=== PATIENT | male | born 1980 | race American Indian/Alaskan Native ===

== ENCOUNTER 2022-03-22 22:08 | Emergency (ER) | payer OTHER ==
[2022-03-22 23:58] LABS: Basophils # (Auto) 0.1 K/mm3 (0.0-0.1); Basophils % (Auto) 0.8 % (0.0-1.8); Eosinophils # (Auto) 0.2 K/mm3 (0.0-0.4); Eosinophils % (Auto) 2.1 % (0.0-4.3); Hematocrit 38.6 % (35.5-45.6); Lymphocytes # (Auto) 2.5 K/mm3 (1.2-5.4); Lymphocytes % (Auto) 27.2 % (13.4-35.0); Mean Corpuscular HGB Conc 34 % (32-34); Mean Corpuscular Volume 92 fl (84-94); Monocytes # (Auto) 0.8 K/mm3 (0.0-0.8); Monocytes % (Auto) 9.1 % (0.0-7.3); Platelet Count 226 K/mm3 (140-440); Red Blood Count 4.19 M/mm3 (3.65-5.03); Red Cell Distribution Width 15.3 % (13.2-15.2)
[2022-03-23 00:21] LABS: Blood Urea Nitrogen 10 mg/dL (9-20); Calcium 9.2 mg/dL (8.4-10.2); Hemolysis Index 3
[2022-03-23 00:31] LABS: BUN/Creatinine Ratio 17
--- NOTE | 2022-03-23 02:18 | Emergency Department Report ---
ED General Adult HPI - General Chief complaint: Medical Clearance Stated complaint: MEDICAL CLEARANCE Time Seen by Provider: 03/23/22 01:27 Source: patient, EMS Mode of arrival: Stretcher Limitations: No Limitations - History of Present Illness Initial comments: 42-year-old male with a history of hypertension who now presented with elevated blood pressure that was noticed to be 170/100 and presentation. When asked patient reported that he has finished metoprolol 25 mg that he was supposed to be taking. Patient however denied any chest pain or shortness of breath or palpitation. No other modifying or associated factors reported. - Related Data Previous Rx's Medication Instructions Recorded Last Taken Type Metoprolol [Lopressor TAB] 25 mg PO BID 30 Days #60 tablet NS 03/23/22 Unknown Rx Allergies Allergy/AdvReac Type Severity Reaction Status Date / Time No Known Allergies Allergy Unverified 03/22/22 23:27 ED Review of Systems ROS: Stated complaint: MEDICAL CLEARANCE Other details as noted in HPI Comment: All other systems reviewed and negative Gastrointestinal: nausea ED Past Medical Hx - Past Medical History Previous Medical History?: Yes Hx Hypertension: Yes Hx Seizures: Yes Hx Psychiatric Treatment: Yes (Schizophrenia) - Social History Smoking Status: Current Every Day Smoker Substance Use Type: None - Medications Home Medications: Home Medications Medication Instructions Recorded Confirmed Last Taken Type Metoprolol [Lopressor TAB] 25 mg PO BID 30 Days #60 tablet NS 03/23/22 Unknown Rx ED Physical Exam - General Limitations: No Limitations General appearance: alert, in no apparent distress - Head Head exam: Present: normal inspection - Eye Eye exam: Present: normal appearance Pupils: Present: normal accommodation - ENT ENT exam: Present: normal exam, normal orophraynx, mucous membranes moist - Neck Neck exam: Present: normal inspection. Absent: tenderness, full ROM - Respiratory Respiratory exam: Present: normal lung sounds bilaterally, respiratory distress. Absent: accessory muscle use - Cardiovascular Cardiovascular Exam: Present: regular rate, normal rhythm, normal heart sounds - GI/Abdominal GI/Abdominal exam: Present: soft, normal bowel sounds. Absent: distended, tenderness - Extremities Exam Extremities exam: Present: normal inspection. Absent: tenderness - Back Exam Back exam: Present: normal inspection. Absent: tenderness - Psychiatric Psychiatric exam: Present: normal affect, normal mood ED Course Vital Signs 03/22/22 03/22/22 03/22/22 23:27 23:30 23:46 Temperature 98 F Pulse Rate 55 L 58 L 67 Respiratory 18 12 13 Rate Blood Pressure 172/108 172/108 159/103 O2 Sat by Pulse 100 99 99 Oximetry 03/23/22 03/23/22 03/23/22 00:00 00:16 00:30 Temperature Pulse Rate 49 L 51 L 44 L Respiratory 17 17 14 Rate Blood Pressure 171/101 142/82 142/83 O2 Sat by Pulse 99 100 100 Oximetry 03/23/22 03/23/22 03/23/22 00:46 01:00 01:16 Temperature Pulse Rate 73 64 50 L Respiratory 14 17 13 Rate Blood Pressure 127/77 136/75 156/89 O2 Sat by Pulse 98 98 100 Oximetry 03/23/22 03/23/22 03/23/22 01:30 01:46 02:00 Temperature Pulse Rate 60 52 L 49 L Respiratory 11 L 19 12 Rate Blood Pressure 130/79 137/75 124/77 O2 Sat by Pulse 99 98 100 Oximetry 03/23/22 03/23/22 02:16 02:30 Temperature Pulse Rate 63 49 L Respiratory 14 15 Rate Blood Pressure 134/75 138/80 O2 Sat by Pulse 99 99 Oximetry - Reevaluation(s) Reevaluation #1: 03/23/22 02:15 Here with elevated blood pressure at 170/100--but noted with unremarkable exam and with improved blood pressure at 124/75 during examination. No medication given at this point. Patient reassured and will order routine labs including CBC, CMP, UA for any infectious process or electrolyte abnormality. We also check TSH for any thyroid abnormality that could stress the body to the point of becoming hypertensive. 03/23/22 02:17 ED Medical Decision Making - Lab Data Result diagrams: 03/22/22 23:45 03/22/22 23:45 Critical care attestation.: If time is entered above; I have spent that time in minutes in the direct care of this critically ill patient, excluding procedure time. ED Disposition Clinical Impression: Hypertensive urgency Disposition: 01 HOME / SELF CARE / HOMELESS Is pt being admited?: No Does the pt Need Aspirin: No Condition: Stable Instructions: Hypertension, Adult, [id number], Preventing Hypertension Additional Instructions: It is very important that you take your antihypertensive metoprolol as prescribed Please call and follow-up with your primary doctor in the next 3 to 5 days for progress Please do not hesitate to call or return to emergency if your symptoms worsen Prescriptions: Metoprolol [Lopressor TAB] 25 mg PO BID 30 Days #60 tablet NS Referrals: MARIAM JAMES MD [Referring] - 3-5 Days Time of Disposition: 03:58
[2022-03-23 09:33] VITALS: BP 138/75
== END 2022-03-23 09:15 | disposition home or self-care (01) ==
LOC: ED 22:08
DX: I16.0 Hypertensive urgency (principal); I10 Essential (primary) hypertension; R56.9 Unspecified convulsions; F20.9 Schizophrenia, unspecified; Z79.899 Other long term (current) drug therapy; F17.200 Nicotine dependence, unspecified, uncomplicated
CPT/HCPCS: 36415; 80048; 80320; 85025; 99283; 99284; G0480